=== PATIENT | male | born 1965 | race African-American/Black ===

== ENCOUNTER 2020-10-05 09:12 | Emergency (ER) | payer OTHER ==
[~2020-10-05] VITALS: Ht 165.1 cm; Wt 75.0 kg
[~2020-10-05 09:12] MED LIST: OMEP10 PO
[2020-10-05] MEDS ORDERED: HYDROCORTISONE 2.5% 30 GM CREAM TP ONE (11:15)
[2020-10-05] MEDS ORDERED: HYDROGEN PEROXIDE 473 ML SOLUTION TP ONE (11:15)
[2020-10-05] MEDS ORDERED: HYDROGEN PEROXIDE 118 ML SOLUTION ONE (11:26)
[2020-10-05 11:51] VITALS: BP 125/70
== END 2020-10-05 11:58 | disposition home or self-care (01) ==
LOC: EMS 09:12
DX: K59.00 Constipation, unspecified (principal); H61.21 Impacted cerumen, right ear

== ENCOUNTER 2020-12-18 09:51 | Emergency (ER) | payer OTHER ==
[~2020-12-18] VITALS: Ht 167.6 cm; Wt 70.5 kg
[2020-12-18] MEDS ORDERED: HYDR-4072 PO (09:58)
[2020-12-18 12:19] VITALS: BP 123/91
== END 2020-12-18 12:34 | disposition home or self-care (01) ==
LOC: EMS 09:54
DX: J06.9 Acute upper respiratory infection, unspecified (principal); G62.9 Polyneuropathy, unspecified
CPT/HCPCS: 99281; 99282; Z7502

== ENCOUNTER 2022-02-22 09:22 | Emergency (ER) | payer OTHER ==
[~2022-02-22] VITALS: Ht 165.1 cm; Wt 75.9 kg
[~2022-02-22 09:22] MED LIST changes: +HYDR-4072 PO; -OMEP10 PO
[2022-02-22 09:51] LABS: BASOPHILS % (AUTO) 0.5 % (0.0-2.0); EOSINOPHILS % (AUTO) 1.6 % (1.0-6.0); HEMATOCRIT 44.8 % (41-53); HEMOGLOBIN 15.4 g/dL (13.5-17.5); LYMPHOCYTES # (AUTO) 1.3 K/uL (1.0-4.8); LYMPHOCYTES % (AUTO) 37.9 % (22.0-44.0); MEAN CORPUSCULAR HGB CONC 34.4 G/dL (31.0-37.0); MEAN CORPUSCULAR VOLUME 96 fL (80-100); MONOCYTES # (AUTO) 0.4 K/uL (0.1-1.0); MONOCYTES % (AUTO) 10.4 % (2.0-9.0); NEUTROPHILS # (AUTO) 1.7 K/uL (1.8-7.7); NEUTROPHILS % (AUTO) 49.6 % (40.0-70.0); PLATELET COUNT (AUTO) 237 K/uL (150-450); RED BLOOD CELL COUNT(AUTO) 4.67 MIL/uL (4.50-5.90); RED CELL DISTRIBUTION WIDTH 12.5 % (11.5-14.5)
[2022-02-22 10:00] LABS: ANION GAP 7 mmol/L (8-16); CALCIUM, TOTAL 9.2 mg/dL (8.8-10.5); CARBON DIOXIDE 31 mmol/L (22-29); CHLORIDE 101 mmol/L (98-107); CREATININE 1.16 mg/dL (0.60-1.30); GLOMERULAR FILTR. RATE CALC > 60 mL/min (>60); GLUCOSE,RANDOM 111 mg/dL (70-110); POTASSIUM 4.5 mmol/L (3.5-5.1); SODIUM SERUM 139 mmol/L (136-145); UREA NITROGEN, BLOOD 14 mg/dL (7-18)
[2022-02-22 10:07] LABS: ALANINE AMINOTRANSFERASE 30 U/L (12-78); ALBUMIN 3.9 g/dL (3.4-5.0); ALKALINE PHOSPHATASE 89 U/L (46-116); ASPARTATE AMINOTRANSFERASE 22 U/L (15-37); BILIRUBIN,TOTAL 0.6 mg/dL (0.1-1.0); LIPASE 113 U/L (73-393); TOTAL PROTEIN, SERUM 7.8 g/dL (6.4-8.2)
[2022-02-22] MEDS ORDERED: ONDANSETRON HCL 4 MG/2 ML VIAL IM ONE (10:45)
[2022-02-22] MEDS ORDERED: MORPHINE SULFATE 4 MG/ML SYRINGE IM ONE (10:45)
[2022-02-22 11:50] LABS: APPEARANCE,URINE CLEAR (CLEAR); BILIRUBIN,URINE NEGATIVE (NEGATIVE); GLUCOSE, URINE (UA) NEGATIVE (NEGATIVE); KETONES,URINE NEGATIVE (NEGATIVE); LEUKOCYTE ESTERASE ,URINE NEGATIVE (NEGATIVE); NITRATE,URINE NEGATIVE (NEGATIVE); OCCULT BLOOD,URINE NEGATIVE (NEGATIVE); PROTEIN,URINE TRACE mg/dL (NEGATIVE); SPECIFIC GRAVITIY, URINE 1.027 (1.003-1.030)
[2022-02-22 12:01] LABS: COVID AG,FIA SOURCE NASAL SWAB
[2022-02-22 12:04] LABS: BACTERIA,URINE None Seen /HPF (None Seen); RBC,URINE None Seen /HPF (0-2); SQUAMOUS EPITHELIAL CELL,UR Few /LPF (None Seen); WBC,URINE None Seen /HPF (0-5)
[2022-02-22 14:40] VITALS: BP 128/75
== END 2022-02-22 15:34 | disposition home or self-care (01) ==
LOC: EMS 09:22
DX: K80.20 Calculus of gallbladder without cholecystitis without obstruction (principal); Z20.822 Contact with and (suspected) exposure to COVID-19
CPT/HCPCS: 36415; 76700; 80053; 81001; 83690; 84484; 85025; 87426; 93005; 96372; 99285; J2270; J2405